=== PATIENT | male | born 1975 | race Caucasian/White ===

== ENCOUNTER → 2020-12-04 10:21 | Outpatient (BNVA) | payer OTHER, SELFPAY | PROVIDERS: Family Provider Internal Medicine; PCP Nurse Practitioner Family; Visit Provider Orthopaedic Surgery | DX: S89.91XA Unspecified injury of right lower leg, initial encounter (principal); X58.XXXA Exposure to other specified factors, initial encounter | CPT/HCPCS: 73560; 73565 ==

== ENCOUNTER → 2020-12-14 16:00 | Outpatient (BNVA) | payer OTHER, SELFPAY | PROVIDERS: Family Provider Internal Medicine; PCP Nurse Practitioner Family; Visit Provider Orthopaedic Surgery | DX: Z01.812 Encounter for preprocedural laboratory examination (principal); Z20.822 Contact with and (suspected) exposure to COVID-19 | CPT/HCPCS: 87635 ==

== ENCOUNTER 2020-12-20 07:45 | Day surgery (SDC) | payer OTHER, SELFPAY ==
[2020-12-19 14:30] VITALS: BMI 28.5
[2020-12-20] VITALS (10 sets, daily range): BP systolic 101–134; BP diastolic 62–99; PULSE 53–68; RESP 12–20; TEMP 36.2–37.1; O2SAT 98–100
[2020-12-20] MEDS: sodium chloride 0.9% 1,000 ML 30 ML IV (08:29)
--- NOTE | 2020-12-20 08:47 | ANES.PREANE2 ---
Pre-Anesthetic Assessment Pre-Anesthetic Assessment: Height/Weight: Height 1.83 m Weight 95.254 kg Temp Pulse Resp BP Pulse Ox 97.1 F L 60 18 130/91 100 12/20/20 08:06 12/20/20 08:06 12/20/20 08:06 12/20/20 08:06 12/20/20 08:06 Preop Diagnosis: Knee Medial and lateral meniscal tears, left Proposed Procedure: Operation Date: 12/20/20 09:10 Proposed Procedures p Knee Arthroscopy 20392 S83.206A(Right) - Tan Cisneros MD Was Beta Elizabeth taken within 24 hours: N/A Was Clonidine taken within 24 hours: N/A Last intake: Intake Last Liquid Date 12/19/20 Last Liquid Time 23:00 Last Solid Date 12/19/20 Last Solid Time 23:30 Social: Social History: No alcohol and No tobacco Exam: Pre-Anes Outpt Exam: alert, oriented x 3, clear to auscultation bilaterally and regular rate & rhythm Airway: Submandibular: WNL Cervical ROM: WNL MP: 2 Dentition: Full CV/HEM: CV/HEM: HTN GI: GI: GERD Anesthetic Plan: ASA status: 2 Anesthesia: General Risk of > 500 ml blood loss (7ml/kg in children): No Meds/Allergies Current Medications: Current Medications Generic Name Dose Route Start Last Admin Trade Name Freq PRN Reason Stop Dose Admin Sodium Chloride 1,000 mls @ 30 ml s/hr 12/20/20 08:00 12/20/20 08:29 Sodium Chloride 0.9% IV 12/21/20 07:59 30 mls/hr .Q24H CANDICE Administration PFSH Anesthesia PFSH: Social History (Updated 12/04/20 @ 10:15 by Sean Viveros LPN) Smoking and tobacco status: never smoked Alcohol intake: current Alcohol intake frequency: holidays/special occasions only Data Anesthesia Cardiac Studies: No Data to Display
--- NOTE | 2020-12-20 09:23 | W.PM.OPSUD ---
Surgery/Procedure H&P Update DATE OF PROCEDURE: December 20, 2020 DATE H&P PERFORMED: 12/04/20 H&P UPDATE INFORMATION: I have reviewed H&P completed within last 30 days PREOP DIAGNOSIS: Knee Medial and lateral meniscal tears, right PLANNED PROCEDURE: Operation Date: 12/20/20 09:10 Proposed Procedures p Knee Arthroscopy 02924 S83.206A(Right) - Tan Cisneros MD
[2020-12-20] MEDS: morphine 4 mg/mL SDV 1 mL 8 MG IM (09:45)
--- NOTE | 2020-12-20 10:22 | P.OP_ITS ---
Operative Report Date of procedure: December 20, 2020 Pre-op Diagnosis: Knee Medial and lateral meniscal tears, right Post-op diagnosis: same Post-op Diagnosis: Degenerative tears right medial and lateral meniscus Chondromalacia medial femoral condyle, lateral femoral condyle, trochlea Procedure Done: Arthroscopic partial right medial lateral meniscectomy Arthroscopic chondroplasty medial femoral condyle and trochlea Pathology: none sent Surgeon: Tan Cisneros Anesthesia: General Estimated blood loss (mL): 5 Findings: Patient in general meniscal tears involving the central 40% of the medial meniscus and 50% of the lateral meniscus. He had fibrillation and fraying over the weightbearing aspect the medial femoral condyle involving 50% of the cartilage thickness. He had fibrillation fraying centrally over the trochlea extending through approximately 50% of the thickness of the cartilage and generalized fraying and softening over the lateral femoral condyle Condition: stable Disposition: PACU Brief History: The patient is a 45-year-old male with chronic knee pain and MRI suggesting medial lateral meniscal tearing. Arthroscopy was chosen to address meniscal tearing and improved pain Procedure: The patient was taken to the operating room after he was given 2 g of Ancef. He was prepped and draped in the supine position with a tourniquet on the right thigh. The tourniquet was never inflated. The knee was entered through the standard inferior medial and inferior lateral portals. The diag nostic portion of the arthroscopy was performed. Initial attention was paid to the medial meniscus. Utilizing the [employer] cautery central degeneration of the medial meniscus was debrided back. This involved removal approximately 30% of the central medial meniscus but the remaining rim seem fairly healthy. Chondromalacia consisting of unstable flaps and fissures over the central weightbearing aspect the medial femoral condyle was identified. This was lightly cleaned up with an incisor shaver and finished with the [employer] cautery leaving approximately 50% of that cartilage behind. The knee was then placed in a [id number] position with more complex tearing noted of the lateral meniscus. Utilizing a basket unstable central meniscus was debrided back. This was cleaned up with an incisor shaver and [employer]rewolf probe leaving approximately 50% of the lateral meniscus remaining. Generalized softening and fibrillation over the lateral femoral condyle was not thought to benefit from debridement. Final attention was paid to the patellofemoral joint. The patella itself seemed reasonably healthy but flaps and fissures were identified centrally in the trochlea. These were lightly debrided with incisor shaver and stabilized with the [employer]rew[employer] probe leaving approximately 50% of the central trochlear cartilage behind. The knee was irrigated with saline. Portals were closed with 3-0 Prolene. Sterile dressings were applied. The patient was extubated taken recovery in stable condition.
--- NOTE | 2020-12-20 10:34 | SUR.PHASEI ---
1034- ORAL AIRWAY OUT, SIMPLE MASK IN PLACE AT 6LPM SAT 99%
[2020-12-20] MEDS: HYDROcodone-acetaminophen 5-325 mg Tablet 1 TAB PO (11:42)
--- NOTE | 2020-12-20 14:54 | ANE.PACU2 ---
Inpatient post-anesthesia follow up: Airway intact: Yes Vital signs: Temperature 98.7 F Pulse Rate 53 Respiratory Rate 18 Blood Pressure 134/99 Pulse Oximetry 100 Oxygen Delivery Me thod Room Air Oxygen Flow Rate 6 Fraction of Inspir ed Oxygen Hydration adequate: Yes Nausea and vomiting: No Pain level: 2 Mental status: Baseline
== END 2020-12-20 12:19 | disposition home or self-care (01) ==
PROVIDERS: PCP Nurse Practitioner Family; Visit Provider Orthopaedic Surgery
PROC: (CPT 29870; principal; 2020-12-20 09:00)
DX: S83.281A Other tear of lateral meniscus, current injury, right knee, initial encounter (principal); S83.241A Other tear of medial meniscus, current injury, right knee, initial encounter; X58.XXXA Exposure to other specified factors, initial encounter; I10 Essential (primary) hypertension; K21.9 Gastro-esophageal reflux disease without esophagitis
CPT/HCPCS: 29880; 96365; J0690; J2250; J2270; J2405; J2704; J3010; J3490; J7030

== ENCOUNTER → 2024-03-31 08:20 | Outpatient (BNVA) | payer MEDICAID, BC, SELFPAY | PROVIDERS: PCP Nurse Practitioner Family; Referring Provider Family Medicine; Visit Provider Student in an Organized Health Care Education/Training Program | DX: Z12.11 Encounter for screening for malignant neoplasm of colon (principal) | CPT/HCPCS: 99024; 99204 ==

== ENCOUNTER 2024-04-11 09:09 | Day surgery (SDC) | payer BC, MEDICAID, SELFPAY ==
[2024-04-11 09:37] VITALS: BP 134/83; PULSE 69; RESP 18; TEMP 36.3; O2SAT 96; BMI 26.4
[2024-04-11] MEDS: sodium chloride 0.9% 1,000 ML 30 ML IV (09:45)
--- NOTE | 2024-04-11 09:59 | ANES.PREANE2 ---
Pre-Anesthetic Assessment Height/Weight: Height 1.83 m Weight 88.451 kg Temp Pulse Resp BP Pulse Ox O2 Del Method 97.3 F L 69 18 134/83 96 Room Air 04/11/24 09:37 04/11/24 09:37 04/11/24 09:37 04/11/24 09:37 04/11/24 09:37 04/11/24 09:37 Preop Diagnosis: Screening Operation Date: 04/11/24 10:25 Proposed Procedures p Colonoscopy 81678, G0105, Z12.11(Not Applicable) - Jeffrey Velez MD Was Beta Elizabeth taken within 24 hours: N/A Was Clonidine taken within 24 hours: N/A Last intake: Intake Last Liquid Date 04/10/24 Last Liquid Time 23:30 Last Solid Date 04/09/24 Last Solid Time 23:00 Social Alcohol Exam alert, oriented x 3, clear to auscultation bilaterally and regular rate & rhythm Airway Submandibular: within normal limits Cervical ROM: within normal limits Mallampati: Class II Dentition: full History/ROS No significant history except as noted and No significant complaints Pulmonary None reported CV/HEM None reported None reported Hepatic None reported GI None reported Metabolic None reported Musc/skel None reported Neuropsych None reported Anesthetic Plan ASA status: 2 Anesthesia: Anesthesia Evaluation and MAC Risk of > 500 ml blood loss (7ml/kg in children): No Medications/Allergies Home Medications Medication Instructions Recorded Confirmed Last Taken Type lisinopril 5 mg tablet 5 mg PO DAILY 12/04/20 04/07/24 04/07/24 History Allergies Allergy/AdvReac Type Severity Reaction Status Date / Time No Known Allergies Allergy Verified 04/07/24 13:50 Current Medications Generic Name Dose Route Start Last Admin Trade Name Freq PRN Reason Stop Dose Admin Sodium Chloride 1,000 mls @ 30 mls/hr 04/11/24 09:30 04/11/24 09:45 Sodium Chloride 0.9% IV 04/12/24 09:29 30 mls/hr .Q24H CANDICE Administration PFSH Anesthesia Family History (Updated 03/31/24 @ 08:36 by FESTUS Estrada) Grandfather , age 68 Colon cancer Unknown Cancer prostate Father Stroke Social History Smoking and tobacco/nicotine status: never used tobacco/nicotine Alcohol intake: current Alcohol intake frequency: holidays/special occasions only Substance/Drug Use: never Data Anesthesia Cardiac Studies: No Data to Display
--- NOTE | 2024-04-11 10:32 | W.PM.OPSUD ---
Surgery/Procedure H&P Update DATE OF PROCEDURE: April 11, 2024 DATE H&P PERFORMED: 03/31/24 H&P UPDATE INFORMATION: I have reviewed H&P completed within last 30 days, I have examined patient prior to procedure and No changes to prior documentation PREOP DIAGNOSIS: Screening PLANNED PROCEDURE: Operation Date: 04/11/24 10:25 Proposed Procedures p Colonoscopy 94140, G0105, Z12.11(Not Applicable) - Jeffrey Velez MD
[2024-04-11 10:53] VITALS: BP 108/64; PULSE 67; RESP 18; TEMP 36.2; O2SAT 97
[2024-04-11 11:03] VITALS: BP 100/66; PULSE 65; RESP 18; O2SAT 96
[2024-04-11 11:13] VITALS: BP 104/68; PULSE 55; RESP 18; O2SAT 98
[2024-04-11 11:25] VITALS: BP 126/83; PULSE 55; RESP 18; O2SAT 100
--- NOTE | 2024-04-11 11:35 | ANE.PACU2 ---
Inpatient post-anesthesia follow up: Airway intact: Yes Vital signs: Temperature 97.1 F Pulse Rate 55 Respiratory Rate 18 Blood Pressure 126/83 Pulse Oximetry 100 Oxygen Delivery Me thod Room Air Oxygen Flow Rate Fraction of Inspir ed Oxygen Hydration adequate: Yes Nausea and vomiting: No Pain level: 1 Mental status: Baseline
== END 2024-04-11 11:34 | disposition home or self-care (01) ==
PROVIDERS: PCP Family Medicine; Visit Provider Student in an Organized Health Care Education/Training Program
PROC: 0DJD8ZZ Inspection of Lower Intestinal Tract, Via Natural or Artificial Opening Endoscopic (ICD-10-PCS; CPT 45378; principal; 2024-04-11 10:25)
DX: Z12.11 Encounter for screening for malignant neoplasm of colon (principal); K63.5 Polyp of colon
CPT/HCPCS: 45380; 45385; 88305; J2704; J7030

== ENCOUNTER → 2024-08-29 14:17 | Outpatient (BNVA) | payer BC, MEDICAID, SELFPAY | PROVIDERS: PCP Family Medicine; Visit Provider Nurse Practitioner | DX: G56.03 Carpal tunnel syndrome, bilateral upper limbs (principal); G56.22 Lesion of ulnar nerve, left upper limb | CPT/HCPCS: 73110 ==

== ENCOUNTER → 2024-10-24 10:57 | Outpatient (BNVA) | payer BC, MEDICAID, SELFPAY | PROVIDERS: PCP Family Medicine; Visit Provider Family Medicine | DX: Z01.818 Encounter for other preprocedural examination (principal) | CPT/HCPCS: 80053; 85025 ==

== ENCOUNTER 2024-10-25 09:38 | Day surgery (SDC) | payer BC, MEDICAID, SELFPAY ==
[2024-10-25] VITALS (10 sets, daily range): BP systolic 116–130; BP diastolic 76–94; PULSE 64–99; RESP 8–18; TEMP 36.2–36.4; O2SAT 98–100; BMI 25.9
[2024-10-25] MEDS: sodium chloride 0.9% 1,000 ML 30 ML IV (10:07)
[2024-10-25] MEDS: CELEcoxib 200 mg Capsule 400 MG PO (10:07)
[2024-10-25] MEDS: acetaminophen 1,000 MG/100 ML PIGGYBACK 400 MG IV (10:07)
[2024-10-25] MEDS: gabapentin 300 mg Capsule PO (10:07)
--- NOTE | 2024-10-25 10:56 | ANES.PREANE2 ---
Pre-Anesthetic Assessment Height/Weight: Height 6 ft Weight 191 lb Temp Pulse Resp BP Pulse Ox O2 Del Method 97.6 F 64 17 128/78 99 Room Air 10/25/24 10:20 10/25/24 10:20 10/25/24 10:20 10/25/24 10:20 10/25/24 10:20 10/25/24 10:20 Preop Diagnosis: Carpal tunnel syndrome Operation Date: 10/25/24 11:20 Proposed Procedures p Left Carpal Tunnel Release(Left) - Brandie Resendiz MD Was Beta Elizabeth taken within 24 hours: N/A Was Clonidine taken within 24 hours: N/A Last intake: Intake Last Liquid Date 10/25/24 Last Liquid Time 23:30 Last Solid Date 10/24/24 Last Solid Time 23:30 Social No alcohol and No tobacco Exam alert, oriented x 3, clear to auscultation bilaterally and regular rate & rhythm Airway Submandibular: within normal limits Cervical ROM: within normal limits Mallampati: Class II Dentition: full Anesthetic Plan ASA status: 2 Anesthesia: General Other: No prior issues with anesthesia NPO since yesterday evening History of hypertension, controlled with lisinopril Recent labs reviewed acceptable for procedure today. K+ 5.2 METs greater than 4 Plan for general anesthesia Medications/Allergies Home Medications ?Medication ?Instructions ?Recorded ?Confirmed ?Last Taken ?Type lisinopril 5 mg tablet 10 mg PO DAILY 08/29/24 10/24/24 10/24/24 History oxcarbazepine 150 mg tablet 150 mg PO BID 08/29/24 10/25/24 10/25/24 History Allergies Allergy/AdvReac Type Severity Reaction Status Date / Time No Known Allergies Allergy Verified 10/24/24 10:31 Current Medications Generic Name Dose Route Start Last Admin Trade Name Freq PRN Reason Stop Dose Admin Sodium Chloride 1,000 mls @ 30 mls/hr 10/25/24 10:00 10/25/24 10:07 Sodium Chloride 0.9% IV 10/26/24 09:59 30 mls/hr .Q24H CANDICE Administration PFSH Anesthesia Family History Grandfather , age 68 Colon cancer Unknown Cancer prostate Father Stroke Social History Smoking and tobacco/nicotine status: never used tobacco/nicotine Alcohol intake: current Alcohol intake frequency: holidays/special occasions only Substance/Drug Use: never Marital status: Data Anesthesia Cardiac Studies: No Data to Display
--- NOTE | 2024-10-25 11:10 | P.HPUD_ITS ---
Surgery/Procedure H&P Update DATE OF PROCEDURE: October 25, 2024 DATE H&P PERFORMED: 10/24/24 H&P UPDATE INFORMATION: I have reviewed H&P completed within last 30 days, I have examined patient prior to procedure, No changes to prior documentation, H&P is in [facility] EMR on date indicated and Risks and benefits of the procedure reviewed PREOP DIAGNOSIS: Carpal tunnel syndrome left PLANNED PROCEDURE: Operation Date: 10/25/24 11:20 Proposed Procedures p Left Carpal Tunnel Release(Left) - Brandie Resendiz MD Related Problem List Diagnoses (1) Carpal tunnel syndrome, left:
[2024-10-25] MEDS: ceFAZolin 2,000 mg SDV 2000 MG IVP (11:40)
[2024-10-25] MEDS: BUPivacaine 0.5% INJ 30 mL INJECTION (11:50)
--- NOTE | 2024-10-25 12:42 | P.OP_ITS ---
Operative Report Date of procedure: October 25, 2024 Pre-op diagnosis: Left carpal tunnel syndrome Post-op diagnosis: Left carpal tunnel syndrome Post-op findings: Significant compression across the carpal canal Procedure done: Left carpal tunnel release Implants: None Specimens removed/disposition: None Pathology: None Surgeon: Brandie Resendiz MD Ceramic Design Engineer: None Anesthesia: General (Per LMA, ASA 2) Estimated blood loss (mL): 2 Tourniquet time (min): 16 (At 250 mmHg) IV fluids (mL): 700 Urine output (mL): 0 (No Torres) Complications: None Findings: Significant compression across the carpal canal Condition: stable Disposition: PACU (Then return to same-day surgery for discharge to home) Brief History: This 49-year-old presented to the office with complaints of bilateral carpal tunnel syndrome. The patient tried conservative treatments and wished to proceed with surgical intervention. Risks and complications of surgery were discussed with him. Consents were signed in the office. In the preoperative holding area, further discussion was accomplished regarding the patient's carpal tunnel symptoms and risks and complications of the release. Questions were an swered, and consent was reviewed. Procedure: The patient was brought to the operating theater. The patient had a general anesthesia per LMA, ASA 2. The tourniquet was elevated to 250 mmHg for a total tourniquet time of 16 minutes. The patient was also given Ancef 2 g preoperatively. The arm was then prepped and draped with DuraPrep in usual fashion with the arm draped free. A surgical pause was performed. At the time, the surgical pause, we confirmed the site and side of surgery. We also confirmed the patient's identity, appropriate and timely administration of preoperative antibiotics and preoperative surgical markings. An incision was then made along the thenar crease. The incision crossed the wrist joint in a curvilinear fashion. Dissection continued through skin and soft tissues using a scalpel. The palmaris longus was identified along with the transverse carpal ligament. Each of these was released carefully to avoid injury to the median nerve. We were able to dissect gently into the carpal canal which was noted to be quite tight with significant compression across the median nerve. The nerve was visualized and was an hourglass shape. The canal was subsequently palpated to assure there was no bony encroachment upon the canal. There was a quite thickened fibrous tissue within the canal, and this was opened longitudinally as well. The canal was then palpated distally and proximally to assure that my small finger was passed easily without impingement. Finding this to be so, attention was directed to closure. The wound was irrigated with ropivacaine plain. It was then closed with 3-0 nylon in an interrupted mattress fashion. Sterile dressing was then placed consisting of Dermabond, OpSite, fluffed fluffs, sterile soft roll, and an Edis wrap. The tourniquet was released after 16 minutes. There were no complications. There were no specimens. The procedure was well tolerated. Plan is the patient will be discharged home. Related Problem List Diagnoses (1) Carpal tunnel syndrome, left:
--- NOTE | 2024-10-25 13:45 | ANE.PACU2 ---
Inpatient post-anesthesia follow up: Airway intact: Yes Vital signs: Temperature 97.1 F Pulse Rate 66 Respiratory Rate 16 Blood Pressure 130/94 Pulse Oximetry 98 Oxygen Delivery Me thod Room Air Oxygen Flow Rate 8 Fraction of Inspir ed Oxygen Hydration adequate: Yes Nausea and vomiting: No Pain level: 1 Mental status: Baseline
== END 2024-10-25 13:45 | disposition home or self-care (01) ==
PROVIDERS: PCP Family Medicine; Visit Provider Specialist
PROC: (CPT 64721; principal; 2024-10-25 11:20)
DX: G56.03 Carpal tunnel syndrome, bilateral upper limbs (principal); I10 Essential (primary) hypertension; Z79.899 Other long term (current) drug therapy
CPT/HCPCS: 64721; J0131; J0690; J1100; J2250; J2405; J2704; J3010; J3490; J7030; J9999